=== PATIENT | female | born 1995 | race Caucasian/White ===

== ENCOUNTER 2023-12-10 11:55 | Outpatient (CLI) | payer OTHER, SELFPAY | END 2023-12-10 11:56 | disposition home or self-care (01) | LOC: NFLDUCREF 11:56 | PROVIDERS: PCP Family Medicine; Visit Provider Nurse Practitioner | DX: L08.9 Local infection of the skin and subcutaneous tissue, unspecified (principal); S01.339A Puncture wound without foreign body of unspecified ear, initial encounter | CPT/HCPCS: 87070; 87186 ==

== ENCOUNTER 2023-12-13 11:02 | Outpatient (CLI) | payer OTHER, SELFPAY | END 2023-12-13 11:03 | disposition home or self-care (01) | PROVIDERS: PCP Family Medicine; Visit Provider Family Medicine | DX: R53.83 Other fatigue (principal); Z13.220 Encounter for screening for lipoid disorders; R63.5 Abnormal weight gain | CPT/HCPCS: 80048; 80061; 84443; 85025 ==

== ENCOUNTER 2024-03-05 19:11 | Emergency (ER) | payer OTHER, SELFPAY ==
[2024-03-05 19:13] VITALS: BP 128/87; PULSE 112; RESP 18; TEMP 36.8; O2SAT 98; BMI 38.4
--- NOTE | 2024-03-05 19:40 | ED.HA ---
HPI - Headache General Time Seen by Provider: 19:40 Date Seen: 03/05/24 Chief Complaint: Headache/Migraine Stated Complaint: hypertension - high pulse - dizzy Time Seen by Provider: 03/05/24 19:40 Source: patient, RN notes reviewed and old records reviewed Mode of arrival: ambulatory Limitations: no limitations History of Present Illness HPI Narrative: 28-year-old female who comes in today with headache. Patient was seen earlier today at the [facility], at that time was concerned about hypertension, headache, is lightheadedness. Labs were done and patient was diagnosis urinary tract infection. Patient comes to the emergency department tonight feel thing poorly still. She complains of lightheadedness and generalized headache, as well as palpitations. Denies chest pain, shortness of breath, nausea, vomiting, diarrhea. Says she started feeling poorly this morning. No new medications. Related Data Home Medications ?Medication ?Instructions ?Recorded ?Confirmed albuterol sulfate 90 mcg/actuation 2 puff inhalation Q4-6H PRN 02/22/24 03/05/24 aerosol inhaler (Ventolin HFA) nitrofurantoin 1 cap PO BID 03/05/24 03/05/24 monohydrate/macrocrystals 100 mg capsule Previous Rx's ?Medication ?Instructions ?Recorded fluoxetine 40 mg capsule 80 mg (2 x 40 mg) PO DAILY #180 12/13/23 caps lisdexamfetamine 40 mg capsule 40 mg PO QAM #30 caps 02/22/24 (Vyvanse) lisdexamfetamine 40 mg capsule 40 mg PO QAM #30 caps 02/22/24 (Vyvanse) venlafaxine 75 mg capsule,extended 75 mg PO QDAY #30 caps 02/22/24 release 24 hr (Effexor XR) Allergies Allergy/AdvReac Type Severity Reaction Status Date / Time nifedipine [From Procardia] Allergy Intermediate Migraine Verified 03/05/24 19:20 bupropion [From Wellbutrin] Allergy Mild itching Verified 03/05/24 19:20 [facility] Medical History (Updated 03/05/24 @ 20:49 by Osman Crandall MD) Major depression, recurrent ?F33.9 - Major depressive disorder, recurrent, unspecified (ICD-10) ADHD, predominantly inattentive type ?F90.0 - Attention-deficit hyperactivity disorder, predominantly inattentive type (ICD-10) JOSE R (generalized anxiety disorder) ?F41.1 - Generalized anxiety disorder (ICD-10) Mild intermittent asthma ?J45.20 - Mild intermittent asthma, uncomplicated (ICD-10) Surgical History S/P tonsillectomy and adenoidectomy ?Z90.89 - Acquired absence of other organs (ICD-10) History of cholecystectomy ?Z90.49 - Acquired absence of other specified parts of digestive tract (ICD-10) History of sinus surgery ?Z98.890 - Other specified postprocedural states (ICD-10) History of hysterectomy ?Z90.710 - Acquired absence of both cervix and uterus (ICD-10) Family History Grandfather Colon cancer Prostate cancer Grandmother Breast cancer Brother ADHD Diabetes Mother ADHD Father Diabetes Lung cancer Other High blood pressure Social History Narrative: , 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, designated coordinator, nonsmoker, social ETOH What is your current living situation?: I presently have a place to live Problems where you live: no known problems In the past 12 months, utilities in danger of being shut off: no In past 12 months, lack of transportation kept you from medical appts, meetings, work, or getting things needed for daily living: no In the past 12 mos, have been you worried that your food would run out before you had money to buy more?: never true In the past 12 mos, the food you bought just didn't last and you didn't have money to buy more?: never true How often does anyone, including family, friends and others, physically hurt you: never How often does anyone, including family, friends and others, insult or talk down to you: never How often does anyone, including family, friends and others, threaten you with harm: never How often does anyone, including family, friends and others, scream or curse at you: never Little interest or pleasure in doing things: several days Feeling down, depressed, or hopeless: several days Exam Narrative: Exam Narrative: General: Well-developed and well-nourished, no acute distress Head: Atraumatic and normocephalic Eyes: Pupils are equal reactive, extraocular motions intact, conjunctiva clear ENT: External nose and ears are normal, posterior pharynx without erythema or exudate Neck: No midline cervical tenderness, full spontaneous range of motion the neck, trachea midline, no adenopathy Heart: Tachycardic but regular Lungs: Clear to auscultation bilaterally without wheezes or crackles Abdomen: Soft, nontender, nondistended with active bowel sounds Musculoskeletal: No tenderness, deformity, or edema Neurologic: Awake, alert, and oriented x3, no gross focal neurologic deficits, cranial nerves intact as tested Psych: Mood and affect are appropriate Skin: No rashes Const: Vital Signs, click to edit/add: Vital Signs - 24 hr 03/05/24 19:13 Temperature 98.3 F Pulse Rate [Pulse Oximeter] 112 H Respiratory Rate 18 Blood Pressure [Ri ght Upper Arm] 128/87 Pulse Oximetry 98 Oxygen Delivery Me thod Room Air Course Course ED Course: Patient seen and examined, reviewed visit from earlier today at outside emergency department when patient had labs done which demonstrated normal basic metabolic panel, mild leukocytosis of white blood cell count 99989, urinalysis nitrite positive with 11-25 white cells, many bacteria and moderate epithelial cells. Urine culture is pending patient was started on Macrobid. Patient presents today with generalized headache, lightheadedness, palpitations. Labs are ordered along with fluids. No focal neurologic deficits, lungs are clear. Reevaluation(s) Time of Reevaluation #1: 20:47 Reevaluation #1: EKG independently interpreted by me performed at 8:27 p.m. demonstrates sinus rhythm 86, no acute ST elevations or depressions, normal intervals, normal axis, QTC 430, NE 156. No prior for comparison. Labs ordered and independently interpreted by me with negative respiratory panel. Vital Signs Vital signs: Initial Vital Signs Temperature 98.3 F 03/05/24 19:13 Temperature Source Temporal Artery Scan 03/05/24 19:13 Pulse Rate 112 H 03/05/24 19:13 Pulse Rhythm Regular 03/05/24 19:13 Pulse Strength 3+ Normal 03/05/24 19:13 Respiratory Rate 18 03/05/24 19:13 Blood Pressure 128/87 03/05/24 19:13 Blood Pressure Mean 100 03/05/24 19:13 Blood Pressure Position Sitting 03/05/24 19:13 Pulse Oximetry 98 03/05/24 19:13 Oxygen Delivery Method Room Air 03/05/24 19:13 Vital Signs Temperature 98.3 F 03/05/24 19:13 Pulse Rate 112 H 03/05/24 19:13 Respiratory Rate 18 03/05/24 19:13 Blood Pressure 128/87 03/05/24 19:13 Pulse Oximetry 98 03/05/24 19:13 Oxygen Delivery Method Room Air 03/05/24 19:13 Temperature 98.3 F 03/05/24 19:13 Pulse Rate 80 03/05/24 22:06 Respiratory Rate 14 03/05/24 22:06 Blood Pressure 135/90 H 03/05/24 22:06 Pulse Oximetry 100 03/05/24 22:06 Oxygen Delivery Method Room Air 03/05/24 19:13 Medications Administered Medications: Discontinued Medications Generic Name Dose Route Start Last Admin Trade Name Freq PRN Reason Stop Dose Admin Sodium Chloride 1,000 mls @ 1,000 mls/hr 03/05/24 20:00 03/05/24 22:20 0.9 % Sodium Chloride 1000 Ml IV 03/05/24 20:59 Infused .Q1H BEE Infusion MDM - Headache Lab Data Labs: Lab Results 03/05/24 03/05/24 03/05/24 Range/Units 19:35 19:55 20:31 D-Dimer Quant (PE/DVT) < 0.27 (0.00-0.50) ug/ml SARS-CoV-2 (PCR) Negative SARS-CoV-2 (Negative) Influenza Type A (PCR) Negative PCR FLU A (Negative) Influenza Type B (PCR) Negative PCR FLU B (Negative) RSV (PCR) Negative PCR RSV (Negative) POC Troponin I 0.00 L (0.01-0.04) ng/ml Discharge Plan Discharge Clinical Impression: Headache, Palpitation Patient Disposition: Home, Self-Care Condition: Stable Instructions: Heart Palpitations (ED), Acute Headache (ED) Additional Instructions: Take Tylenol or ibuprofen as needed for headache Take antibiotics as prescribed earlier Make sure your getting plenty of fluids and rest. Avoid alcohol and caffeine Follow-up with your regular doctor in 1 week Activity Level: Activity as Tolerated Prescriptions: No Action fluoxetine 40 mg capsule 80 mg PO DAILY Qty: 180 1RF albuterol sulfate [Ventolin HFA] 90 mcg/actuation HFA aerosol inhaler 2 puff inhalation Q4-6H PRN lisdexamfetamine [Vyvanse] 40 mg capsule 40 mg PO QAM Qty: 30 0RF lisdexamfetamine [Vyvanse] 40 mg capsule 40 mg PO QAM Qty: 30 0RF venlafaxine [Effexor XR] 75 mg capsule,extended release 24hr 75 mg PO QDAY Qty: 30 1RF nitrofurantoin monohyd/m-cryst 100 mg capsule 1 cap PO BID Follow Up/Referrals: Larry Guevara MD [Primary Care Provider] - Stand Alone Forms: [facility] Info Instructions
[2024-03-05 20:15] LABS: PCR FLU A Negative PCR FLU A (Negative); PCR FLU B Negative PCR FLU B (Negative); PCR RSV Negative PCR RSV (Negative); SARS PCR* Negative SARS-CoV-2 (Negative)
--- NOTE | 2024-03-05 20:48 | CRLHL7_ITS ---
For Patients: As a result of the Cures Act, medical imaging exams and procedure reports are released immediately into your electronic medical record. You may view this report before your referring provider. If you have questions, please contact your health care provider. INDICATION: Palpitations. TECHNIQUE: Chest 2 views. COMPARISON: None. FINDINGS: Cardiovascular and mediastinum: Heart size and vasculature are normal in caliber and appearance. Lungs and pleural spaces: Lungs are clear. No sign of infiltrate or mass. No sign of pleural effusion. No pneumothorax. Bones and soft tissues: No significant findings. IMPRESSION: No acute cardiopulmonary abnormality. Dictated by Fransisco Arevalo MD @ 03/05/2024 10:17:06 PM (Electronically Signed)
[2024-03-05 21:14] VITALS: BP 135/90; PULSE 72
[2024-03-05 21:46] LABS: D Dimer Quantitative* < 0.27 ug/ml (0.00-0.50)
[2024-03-05 22:06] VITALS: BP 135/90; PULSE 80; RESP 14; O2SAT 100
[2024-03-05] MEDS: 0.9 % SODIUM CHLORIDE 1000 ml 1,000 ML IV (22:20)
== END 2024-03-05 22:30 | disposition home or self-care (01) ==
PROVIDERS: Emergency Provider Family Medicine; PCP Family Medicine
DX: R51.9 Headache, unspecified (principal); R00.2 Palpitations
CPT/HCPCS: 36415; 71046; 84484; 85379; 87631; 93005; 99284; J7030

== ENCOUNTER 2024-04-23 17:36 | Outpatient (CLI) | payer OTHER, SELFPAY | END 2024-04-23 17:37 | disposition home or self-care (01) | LOC: NFLDUCREF 17:37 | PROVIDERS: PCP Family Medicine; Visit Provider Nurse Practitioner Family | DX: L73.2 Hidradenitis suppurativa (principal) | CPT/HCPCS: 87070; 87186 ==

== ENCOUNTER 2024-07-24 18:39 | Emergency (ER) | payer OTHER, SELFPAY ==
[2024-07-24] VITALS (13 sets, daily range): BP systolic 126–142; BP diastolic 78–89; PULSE 118–157; RESP 14; TEMP 37.7–39.4; O2SAT 94–99; BMI 36.0
--- NOTE | 2024-07-24 19:04 | CRLHL7_ITS ---
For Patients: As a result of the Century Cures Act, medical imaging exams and procedure reports are released immediately into your electronic medical record. You may view this report before your referring provider. If you have questions, please contact your health care provider. INDICATION: Cough, fever. TECHNIQUE: Chest 1 view. COMPARISON: Chest radiograph 03/05/2024. FINDINGS: The patient is rotated and the left apex is partially obscured by patient`s head. Low lung volumes. No focal consolidation, pleural effusion, or pneumothorax. Normal heart size. New right hilar fullness. The bones are unremarkable. IMPRESSION: New right hilar fullness could be due to lymphadenopathy. No focal lung infiltrates. Dictated by Stella Greco MD @ 07/24/2024 8:21:23 PM (Electronically Signed)
--- NOTE | 2024-07-24 19:08 | ED.GENADULT ---
HPI - General Adult General Chief complaint: Fever Stated complaint: fever, high blood pressure Time Seen by Provider: 07/24/24 18:44 History of Present Illness HPI narrative: This 28-year-old female comes in reporting fever and generalized malaise with cough. Symptoms started about 4 days ago but worsened yesterday with fever. She arrives here with a temperature to 103? F. She did take Tylenol and ibuprofen about 3 hours prior to arrival. She does report some shortness of breath but arrives here with oximetry at 95% on room air. She does have tachycardia with heart rate around 140 beats per minute. Blood pressure is normal. She states that she did do testing for COVID, influenza, and RSV yesterday with negative results. Related Data Home Medications ?Medication ?Instructions ?Recorded ?Confirmed albuterol sulfate 90 mcg/actuation 2 puff inhalation Q4-6H PRN 02/22/24 06/25/24 aerosol inhaler (Ventolin HFA) Previous Rx's ?Medication ?Instructions ?Recorded dextroamphetamine-amphetamine 10 10 mg PO QDAY #30 tabs 06/25/24 mg tablet (Adderall) dextroamphetamine-amphetamine 10 10 mg PO QDAY #30 tabs 06/25/24 mg tablet (Adderall) dextroamphetamine-amphetamine 10 10 mg PO QDAY #30 tabs 06/25/24 mg tablet (Adderall) escitalopram oxalate 10 mg tablet 10 mg PO QDAY #90 tabs 06/25/24 lisdexamfetamine 50 mg capsule 50 mg PO QAM #30 caps 06/25/24 (Vyvanse) lisdexamfetamine 50 mg capsule 50 mg PO QAM #30 caps 06/25/24 (Vyvanse) lisdexamfetamine 50 mg capsule 50 mg PO QAM #30 caps 06/25/24 (Vyvanse) Allergies Allergy/AdvReac Type Severity Reaction Status Date / Time nifedipine (From Procardia) Allergy Intermediate Migraine Verified 07/24/24 18:46 bupropion (From Wellbutrin) Allergy Mild itching Verified 07/24/24 18:46 Review of Systems Status of ROS: Reports: 10 or more systems reviewed and unremarkable except as noted in History and below Narrative: Constitutional: No weight gain or loss. Eyes: No discharge. No vision changes. HENT: No congestion, no sore throat, no ear pain. Cardiovascular: No chest pain, no palpitations. Respiratory: Cough and some shortness of breath. Gastrointestinal: No abdominal pain, no vomiting, no diarrhea. Genitourinary: No dysuria, no hematuria. Musculoskeletal: Normal range of motion. Skin: No rashes, no pruritis. Neurological: No dizziness, weakness, sensory change, speech change. Endo/Heme/Allergies: No bruising or bleeding. No polydipsia. Pysch: no suicidality, no anxiety, no insomnia. All other systems reviewed and are negative. [facility] Medical History (Updated 07/24/24 @ 20:31 by Jarvis Mandujano MD) Major depression, recurrent ?F33.9 - Major depressive disorder, recurrent, unspecified (ICD-10) ADHD, predominantly inattentive type ?F90.0 - Attention-deficit hyperactivity disorder, predominantly inattentive type (ICD-10) JOSE R (generalized anxiety disorder) ?F41.1 - Generalized anxiety disorder (ICD-10) Mild intermittent asthma ?J45.20 - Mild intermittent asthma, uncomplicated (ICD-10) Surgical History S/P tonsillectomy and adenoidectomy ?Z90.89 - Acquired absence of other organs (ICD-10) History of cholecystectomy ?Z90.49 - Acquired absence of other specified parts of digestive tract (ICD-10) History of sinus surgery ?Z98.890 - Other specified postprocedural states (ICD-10) History of hysterectomy ?Z90.710 - Acquired absence of both cervix and uterus (ICD-10) Family History Grandfather Colon cancer Prostate cancer Grandmother Breast cancer Brother ADHD Diabetes Mother ADHD Father Diabetes Lung cancer Other High blood pressure Social History Narrative: , 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, designated coordinator, nonsmoker, social ETOH What is your current living situation?: I presently have a place to live Problems where you live: no known problems In the past 12 months, utilities in danger of being shut off: no In the past 12 mos, have been you worried that your food would run out before you had money to buy more?: never true In the past 12 mos, the food you bought just didn't last and you didn't have money to buy more?: never true How often does anyone, including family, friends and others, physically hurt you: never How often does anyone, including family, friends and others, insult or talk down to you: never How often does anyone, including family, friends and others, threaten you with harm: never How often does anyone, including family, friends and others, scream or curse at you: never Exam Narrative: Exam Narrative: Constitutional: Well-developed, well-nourished, no acute distress. HEENT: Normocephalic, atraumatic. Neck: Normal range of motion. Nontender. Supple. Heart: Regular. No murmurs. Normal rate. Intact distal pulses. Lungs: Clear to auscultation. No chest discomfort. No wheezes, rhonchi, or rales. Abdomen: Normal bowel sounds. Nontender. No rebound tenderness. Genitalia: Deferred. Back: No midline tenderness. Normal range of motion. Extremities: Normal range of motion. No injury. Skin: Intact. No rash. Warm. No erythema or pallor. Neurologic: No altered sensation. No weakness. Alert and oriented. Psychiatric: No suicidality. No anxiety or depression. No insomnia. Nursing notes and vitals signs are reviewed. Const: Vital Signs, click to edit/add: Vital Signs - 24 hr 07/24/24 18:46 07/24/24 18:54 07/24/24 19:01 Temperature 103 F H Pulse Rate 149 H 148 H Pulse Rate [Pulse Oximeter] 157 H Respiratory Rate 14 Blood Pressure 142/86 H Blood Pressure [Ri ght Upper Arm] 133/87 Pulse Oximetry 99 99 98 Oxygen Delivery Me thod Room Air 07/24/24 19:10 07/24/24 19:31 07/24/24 19:32 Temperature Pulse Rate 139 H 131 H 146 H Pulse Rate [Pulse Oximeter] Respiratory Rate Blood Pressure 126/78 133/87 Blood Pressure [Ri ght Upper Arm] Pulse Oximetry 97 94 99 Oxygen Delivery Me thod 07/24/24 19:45 07/24/24 20:00 07/24/24 20:01 Temperature Pulse Rate 131 H 124 H 130 H Pulse Rate [Pulse Oximeter] Respiratory Rate Blood Pressure 142/89 H Blood Pressure [Ri ght Upper Arm] Pulse Oximetry 94 95 95 Oxygen Delivery Me thod 07/24/24 20:02 07/24/24 20:15 07/24/24 20:17 Temperature 99.8 F H Pulse Rate 129 H 123 H Pulse Rate [Pulse Oximeter] Respiratory Rate Blood Pressure Blood Pressure [Ri ght Upper Arm] Pulse Oximetry 99 97 Oxygen Delivery Me thod Course Vital Signs Vital signs: Initial Vital Signs Temperature 103 F H 07/24/24 18:46 Temperature Source Temporal Artery Scan 07/24/24 18:46 Pulse Rate 157 H 07/24/24 18:46 Pulse Rhythm Regular 07/24/24 18:46 Respiratory Rate 14 07/24/24 18:46 Blood Pressure 133/87 07/24/24 18:46 Blood Pressure Mean 102 07/24/24 18:46 Blood Pressure Position Sitting 07/24/24 18:46 Pulse Oximetry 99 07/24/24 18:46 Oxygen Delivery Method Room Air 07/24/24 18:46 Vital Signs Temperature 103 F H 07/24/24 18:46 Pulse Rate 157 H 07/24/24 18:46 Respiratory Rate 14 07/24/24 18:46 Blood Pressure 133/87 07/24/24 18:46 Pulse Oximetry 99 07/24/24 18:46 Oxygen Delivery Method Room Air 07/24/24 18:46 Temperature 99.8 F H 07/24/24 20:17 Pulse Rate 123 H 07/24/24 20:15 Respiratory Rate 14 07/24/24 18:46 Blood Pressure 142/89 H 07/24/24 20:01 Pulse Oximetry 97 07/24/24 20:15 Oxygen Delivery Method Room Air 07/24/24 18:46 Medications Administered Medications: Discontinued Medications Generic Name Dose Route Start Last Admin Trade Name Freq PRN Reason Stop Dose Admin Sodium Chloride 1,000 mls @ 1,000 mls/hr 07/24/24 19:15 07/24/24 19:11 0.9 % Sodium Chloride 1000 Ml IV 07/24/24 20:14 1,000 mls/hr .Q1H BEE Administration Ketorolac Tromethamine 15 mg 07/24/24 19:03 07/24/24 19:10 Ketorolac 30 Mg/Ml Inj IVP 07/24/24 19:04 15 mg ONCE ONE Administration Medical Decision Making MDM Narrative Medical decision making narrative: This patient comes in with fever, tachycardia, and cough. She has normal oximetry at around 98% on room air. An IV was established and she received a L of normal saline and Toradol 15 mg intravenously. She is maintaining normal vital signs but continues to have some tachycardia. Chest x-ray is obtained and by my review and radiology report shows no obvious sign of infiltrate with some possible lymphadenopathy. Lab results also returned with normal findings. Her white count is normal and her lactate is in normal range. She is not showing signs of sepsis. This patient's symptoms are likely due to a respiratory infection which may be bacterial however the evidence seems to be more likely a viral infection. The patient did receive an IV dose of Solu-Medrol 125 mg. I did provide a prescription for doxycycline as her urinalysis did show positive for nitrates but not really an obvious infection otherwise. Doxycycline hopefully will help her if there is a bacterial component to her symptoms. I did discuss the option for hospitalization seeing that her tachycardia continues but the patient feels okay to return home. I did describe signs and symptoms that would indicate a need for return and re-evaluation. Lab Data Labs: Lab Results 07/24/24 07/24/24 Range/Units 19:15 Unknown WBC 8.78 (4.50-11.00) K/uL RBC 4.83 (4.00-5.20) m/uL Hgb 14.0 (12.0-16.0) gm/dL Hct 42.9 (33.0-51.0) % MCV 89 (80-100) fL MCH 29 (26-34) pg MCHC 33 (32-36) gm/dL RDW Coeff of Marcello 13.5 (11.5-15.5) % Plt Count 328 (140-440) K/uL Neut % (Auto) 75.8 H (42.0-72.0) % Lymph % (Auto) 12.2 L (20-44) % [place] % (Auto) 10.5 (0.0-11.0) % Eos % (Auto) 0.7 (0.0-7.0) % Baso % (Auto) 0.7 (0.0-3.0) % Neut # (Auto) 6.70 (1.7-7.0) K/uL Lymph # (Auto) 1.10 (0.90-2.90) K/uL [place] # (Auto) 0.90 (0.00-0.90) K/UL Eos # (Auto) 0.06 (0.00-0.50) K/uL Baso # (Auto) 0.06 (0.00-0.30) K/uL Abs Immat Gran (auto) 0.01 (0.00-0.30) K/uL Imm/Tot Granulo (auto) 0.1 % Sodium 137 (135-149) mmol/L Potassium 3.6 (3.6-5.1) mmol/L Chloride 104 (96-114) mmol/L Carbon Dioxide 24 (20-32) mmol/L Anion Gap 9 (7-15) mEq/L BUN 6 (5-24) mg/dL Creatinine 0.8 (0.5-1.5) mg/dL Estimated Creat Clear 100.90 Estimated GFR 102 ml/min Glucose 108 (60-115) mg/dL Lactate 1.7 (0.5-1.9) mmol/L Calcium 9.3 (8.4-10.6) mg/dL Urine Color Yellow (Yellow) Urine Appearance Clear (Clear) Urine pH 7.5 (5.0-8.5) Ur Specific [place] 1.015 (1.000-1.030) Urine Protein Negative (Negative) Urine Glucose (UA) Negative (Negative) Urine Ketones Negative (Negative) Urine Blood Trace-intact A (Negative) Urine Nitrite Positive A (Negative) Urine Bilirubin Negative (Negative) Urine Urobilinogen 1.0 (0.2-1.0) Ur Leukocyte Esterase Trace A (Negative) Urine RBC 2-5 A (0-2) Urine WBC 2-5 (0-5) Ur Squamous Epith Cells Few (None-Few) Urine Bacteria Moderate A (None) ECG Data Attestation: I personally reviewed and interpreted this ECG as follows: Interpretation: Sinus tachycardia. Rate is 138 beats per minute. There are no specific ST or T-wave abnormalities. Discharge Plan Discharge Clinical Impression: Lower respiratory infection Patient Disposition: Home, Self-Care Condition: Stable Additional Instructions: Use [id number] medicines as needed and directed. Take prescription also as directed. Follow up with MD return if symptoms persist or are worsening. Prescriptions: No Action lisdexamfetamine [Vyvanse] 50 mg capsule 50 mg PO QAM Qty: 30 0RF escitalopram oxalate 10 mg tablet 10 mg PO QDAY Qty: 90 1RF lisdexamfetamine [Vyvanse] 50 mg capsule 50 mg PO QAM Qty: 30 0RF lisdexamfetamine [Vyvanse] 50 mg capsule 50 mg PO QAM Qty: 30 0RF dextroamphetamine-amphetamine [Adderall] 10 mg tablet 10 mg PO QDAY Qty: 30 0RF dextroamphetamine-amphetamine [Adderall] 10 mg tablet 10 mg PO QDAY Qty: 30 0RF dextroamphetamine-amphetamine [Adderall] 10 mg tablet 10 mg PO QDAY Qty: 30 0RF albuterol sulfate [Ventolin HFA] 90 mcg/actuation HFA aerosol inhaler 2 puff inhalation Q4-6H PRN Follow Up/Referrals: Clay Tucker MD [Primary Care Provider] - Stand Alone Forms: [employer] Info Instructions
[2024-07-24] MEDS: KETOROLAC 30 MG/ML inj 15 MG IVP (19:10)
[2024-07-24] MEDS: 0.9 % SODIUM CHLORIDE 1000 ml 1,000 ML IV (19:11)
[2024-07-24 19:20] LABS: Lactate* 1.7 mmol/L (0.5-1.9)
[2024-07-24 19:26] LABS: Basophils Absolute Auto 0.06 K/uL (0.00-0.30); Basophils Percent Auto 0.7 % (0.0-3.0); Eosinophils Absolute Auto 0.06 K/uL (0.00-0.50); Eosinophils Percent Auto 0.7 % (0.0-7.0); Hematocrit 42.9 % (33.0-51.0); Immature Granulocytes Abs Auto 0.01 K/uL (0.00-0.30); Immature Granulocytes Pct Auto 0.1 %; Lymphocytes Percent Auto 12.2 % (20-44); Mean Corpuscular HGB Conc 33 gm/dL (32-36); Mean Corpuscular Hemoglobin 29 pg (26-34); Mean Corpuscular Volume 89 fL (80-100); Monocytes Percent Auto 10.5 % (0.0-11.0); Neutrophils Percent Auto 75.8 % (42.0-72.0); Platelet Count* 328 K/uL (140-440); RDW Coefficient of Variation % 13.5 % (11.5-15.5); Red Blood Count 4.83 m/uL (4.00-5.20); Slide Review Reflex No; White Blood Count* 8.78 K/uL (4.50-11.00)
[2024-07-24 19:36] LABS: Chloride* 104 mmol/L (96-114)
[2024-07-24 19:37] LABS: Potassium* 3.6 mmol/L (3.6-5.1); Sodium* 137 mmol/L (135-149)
[2024-07-24 19:39] LABS: Creatinine* 0.8 mg/dL (0.5-1.5); Estimated Glomerular Filt Rate 102 ml/min
[2024-07-24 19:40] LABS: Anion Gap 9 mEq/L (7-15); Blood Urea Nitrogen* 6 mg/dL (5-24); Calcium* 9.3 mg/dL (8.4-10.6); Carbon Dioxide* 24 mmol/L (20-32); Glucose* 108 mg/dL (60-115)
[2024-07-24 20:16] LABS: Appearance Urine Clear (Clear); Bilirubin Urine Negative (Negative); Blood Urine Trace-intact (Negative); Color Urine Yellow (Yellow); Glucose Urine Negative (Negative); Ketones Urine Negative (Negative); Leukocyte Esterase Urine Trace (Negative); Nitrite Urine Positive (Negative); Protein Urine Negative (Negative); Specific Gravity Urine 1.015 (1.000-1.030); pH Urine 7.5 (5.0-8.5)
[2024-07-24 20:26] LABS: Bacteria Urine Moderate; Squamous Epithelial Cell Urine Few (None-Few)
[2024-07-24] MEDS: METHYLPREDNISOLONE SOD SUCC 62.5 MG/ML (125) 125 MG IVP (20:36)
== END 2024-07-24 20:50 | disposition home or self-care (01) ==
PROVIDERS: Emergency Provider Emergency Medicine Emergency Medical Services; PCP Family Medicine
DX: J22 Unspecified acute lower respiratory infection (principal)
CPT/HCPCS: 36415; 71045; 80048; 81001; 83605; 85025; 87040; 87086; 87186; 93005; 96361; 96374; 96375; 99284; 99285; J1885; J2919; J7030

== ENCOUNTER 2024-08-08 17:55 | Outpatient (CLI) | payer BC, SELFPAY | END 2024-08-08 17:56 | disposition home or self-care (01) | LOC: NFLDUCREF 17:57 | PROVIDERS: PCP Family Medicine; Visit Provider Family Medicine | DX: R05.9 Cough, unspecified (principal) | CPT/HCPCS: 86615 ==

== ENCOUNTER 2024-11-18 15:47 | Outpatient (CLI) | payer BC, SELFPAY | END 2024-11-18 15:48 | disposition home or self-care (01) | LOC: NFLDREF 11-19 10:49 | PROVIDERS: PCP Family Medicine; Referring Provider Family Medicine; Visit Provider Family Medicine | DX: Z13.228 Encounter for screening for other metabolic disorders (principal) | CPT/HCPCS: 80048 ==

== ENCOUNTER 2025-05-23 14:19 | Emergency (ER) | payer BC, SELFPAY ==
[2025-05-23 14:21] VITALS: BP 145/85; PULSE 86; RESP 16; TEMP 36.6; O2SAT 100; BMI 37.6
--- OUTSIDE RECORDS SUMMARY | 2025-05-23 14:21 | XMS_ITS | Clinical Summary ---
Author Organization [employer] [facility] Address [address] [place] [id number] Care Team Providers Care Napping Machine Operator Name Role Phone Zayra Cobb NP Unavailable [phone] Clay Tucker MD Primary Care Provider + Allergies Active Allergy Reactions Criticality Noted Date Comments Nifedipine Headache 09/20/2018 Bupropion Itching 09/21/2021 Medications SUMAtriptan (IMITREX) 50 mg tablet Take 50 mg by mouth 2 times daily if needed. 02/16/20 19 Active topiramate (TOPAMAX) 25 mg tablet Take 1 tablet by mouth at bedtime. 01/28/20 20 Active cholecalciferol, Vitamin D3, 5,000 unit tab tablet Take 125 mcg by mouth once daily. Active colestipoL (COLESTID) 1 gram tablet Take 1 g by mouth one time if needed. 10/28/19 20 Active docusate 250 mg capsule Take 250 mg by mouth once daily if needed. Active FLUoxetine (PROZAC) 40 mg capsule Take 1 Capsule by mouth once daily. 07/28/20 21 Active fluticasone propionate (FLOVENT) 110 mcg/Actuation inhaler Inhale 2 Puffs by mouth 2 times daily. 03/12/20 21 Active loratadine (CLARITIN) 10 mg tablet Take 10 mg by mouth once daily. 03/12/20 21 Active rizatriptan (MAXALT EMBROIDERY SPECIALIST) 10 mg disintegrating tablet Take 10 mg by mouth one time if needed. 12/17/19 21 Active BUPROPION HCL ORAL Take 10 mg by mouth. Active HYDROcodone-acetam inophen (NORCO) 5-325 mg per tabletIndications: Post-op pain Take 1 tablet by mouth every 4 hours if needed for Pain. Max acetaminophen dose: 4000 mg in 24 hrs. 12 Tablet 2 5:27 PM LABORER YARD 09/30/19 22 Active ondansetron (ZOFRAN ODT) 8 mg disintegrating tabletIndications: Nausea Place 1 tablet (8 mg) on the tongue 2 times daily. 12 Tablet 2 5:27 PM LABORER YARD 09/30/19 22 Active albuterol HFA (PRO-AIR; VENTOLIN; PROVENTIL) 90 mcg/actuation inhalerIndications :Mild intermittent asthma with exacerbation (HC) Inhale 2 Puffs by mouth 4 times daily if needed for Shortness Of Breath or Wheezing. 1 Each 02/01/20 24 Active Active Problems Problem Noted Date Diagnosed Date Abnormal uterine bleeding 12/25/2018 Placenta accreta, antepartum 12/25/2018 Dysmenorrhea 12/25/2018 Vacuum extractor delivery, delivered 10/28/2018 Retained placenta 10/28/2018 Gestational hypertension 10/05/2018 Preeclampsia 10/05/2018 Gestational hypertension 09/27/2018 Urinary tract bacterial infections 09/22/2018 Arthritis of carpometacarpal (CMC) joint of righ t thumb 05/11/2017 Overview (09/12/2018): right thumb arthroplasty, ligament reconstruction and tendon interposition Immunizations Immunization Administration Dates Next Due Rabavert 03/16/2024,03/13/2024 03/20/2024 Tdap 03/13/2024,08/30/2018,12/18/2017 ,05/23/2007 Family History Medical History Relation Name Comments No Known Problems Daughter Relation Name Status Comments Daughter Alive Social History Tobacco Use Types Packs/Day Years Used Date Smoking Tobacco: Never Smokeless Tobacco: Never Tobacco Cessation:Counseling Given: No Alcohol Use Standard Drinks/Week Comments No 0 (1 standard drink = 0.6 oz pur e alcohol) Social Connections Answer Date Recorded Do you often feel lonely or isolated from those around you? 0 03/13/2024 Financial Resource Strain Answer Date R ecorded Difficulty of Paying Living Expenses 3 09/28/2024 Difficulty of Paying Living Expenses Not on file 09/28/2024 Food Insecurity Answer Date Recorded Do you worry your food will run out before you are able to buy more? 1 03/13/2024 Transportation Needs Answer Date Record ed Does lack of transportation keep you from medica l appointments? 1 03/13/2024 Does lack of transportation keep you from work, meetings or getting things that you need? 1 03/13/2024 Housing Stability Answer Date Recorded What is your housing situation today? 1 03/13/2024 Interpersonal Safety Answer Date Record ed Are you being hit, kicked, p ushed or yelled at (see row info)? No 02/01/2024 Interpersonal Safety Abuse 12 - 18 Not on file 02/01/2024 Interpersonal Safety Ambulatory Vulnerability No t on file 02/01/2024 Utilities Answer Date Recorded Do you have trouble paying f or utilities (for example, heat, electricity, water, phone)? 1 03/13/2024 Comments No Sex and Gender Information Value Date Recorded Sex Assigned at Not on file Legal Sex Female 7:14 AM LABORER YARD Gender Identity Not on file Sexual Orientation Not on file Obstetrics History Para Term AB IAB SAB Ectopic Multiple Livin g Live Births 1 1 0 1 0 0 0 0 0 1 1 Date Outcome GA Total Labor Labor/2nd/3rd Weight Sex Type Anes PTL Elaine A1 A5 Name Clin 2018 36w 5d 3.06 kg (6 lb 12 oz) F Vag-V acuum Epidur al N Livin g Jennifer Evans Complications:Retained place nta (HC) Delivery Location:[facility] ospital Comments:PPH Last Filed Vital Signs Vital Sign Reading Time Taken Comments Blood Pressure 130/81 03/13/2024 7:36 PM CDT Pulse 98 03/13/2024 7:36 PM CDT Temperature 36.1 C (96.9 F) 03/13/2024 7:36 PM CDT Respiratory Rate 18 03/13/2024 7:36 PM CDT Oxygen Saturation 96% 03/13/2024 7:36 PM CDT Inhaled Oxygen Concentration - - Weight 110.6 kg (243 lb 14.4 oz) 03/13/2024 7:36 PM CDT Height 170.2 cm (5' 7) 03/05/2024 9:49 AM CDT Body Mass Index 38.2 03/05/2024 9:49 AM CDT Plan of Treatment Health Maintenance Due Date Last Done Comments Depression screening for age 12+ 2006 HIV for age 15-65 2009 Hepatitis C screening for age 18-79 2012 Hepatitis B series for 19+ (1 of 3 - 19+ 3-dose series) 2013 Pap test for age 21-65 2015 BMI (ht and wt on same day) for age 18+ 05/03/2018 05/03/2017, 04/27/2017 HPV series for age 9-45 (1 - 3-dose SCDM series) 2021 COVID-19 vaccine series (2024- season) 2025 08/05/2021, 10/30/2020, 10/02/2020 Influenza Vaccine (#1) 2025 Tetanus booster 03/13/2034 03/13/2024, 10/2018, 12/18/2017, Additional history exists RSV vaccine for adults or (1 - 1-dose 75+ series) 2069 Pneumococcal series for age 6-49 Aged Out No longer eligible based on patient's age to complete this topic Insurance CARLI CRESPO [id number] [employer] [place] OF [place] Advance Directives * Full Code (Latest Code Status on File) Date Activated Date Inactivated Comments 09/30/2021 7:27 AM 09/30/2021 5:32 PM Question Answer Comments Code Status Discussion: Reviewed Preferences * Full Code Date Activated Date Inactivated Comments 03/02/2020 7:58 AM 03/02/2020 1:00 PM * Full Code Date Activated Date Inactivated Comments 02/05/2020 9:57 AM 02/05/2020 4:32 PM * Full Code Date Activated Date Inactivated Comments 02/05/2020 9:57 AM 02/05/2020 9:57 AM * Full Code Date Activated Date Inactivated Comments 12/25/2018 8:04 AM 12/26/2018 12:21 PM Question Answer Comments Code Status Discussion: Discussed Care Teams Napping Machine Operator Relationship Specialty Start Date End Date Clay Tucker MD [address] [place] [address] PCP - General Family Practice 01/03/24 Zayra Cobb NP Nurse Practitioner 12/19/17
--- OUTSIDE RECORDS SUMMARY | 2025-05-23 14:21 | XMS_ITS | Clinical Summary ---
Author Organization [facility] [place] [address] Care Team Providers Care Fraud Manager Name Role Phone Garth Marin M.D. Primary Care Provider Source Comments Patient records contain information from all sites at [facility]. For routine questions regarding patient records, call [phone] during business hours, M-F 8:00 AM - 5:00 PM Central Time. Record requests for emergency care only can be directed to [phone] at any time.[facility] Allergies Active Allergy Reactions Criticality Noted Date Comments Bupropion Itching Low 09/21/2021 Nifedipine Headache Low 09/20/2018 Bupropion Hcl Itching Low 06/24/2021 Medications acetaminophen (TYLENOL) 500 mg tablet Take 1,000 mg by mouth every 6 (six) hours as needed for pain. Active albuterol (Ventolin HFA) inhalerIndications :Asthma Extrinsic (HCC) Inhale 2 puffs 4 (four) times a day as needed for wheezing. 54 g 3 0 Active cholecalciferol (VITAMIN D3) 125 mcg (5,000 Unit) tablet Take 125 mcg by mouth daily. 2 gummies equivalent to 5,000 IU Active rizatriptan INTELLIGENCE INTERN (Maxalt-INTELLIGENCE INTERN) 10 mg disintegrating tablet Take 1 tablet (10 mg total) by mouth as needed for migraine. May repeat dose once in 2 hours if migraine unresolved. Do not exceed 30 mg in 24 hours. 18 tablet 3 1 Active loratadine (Claritin) 10 mg tablet Take 1 tablet (10 mg total) by mouth daily. 90 tablet 3 1 Active fluticasone propionate (FLOVENT HFA) 110 mcg/actuation inhalerIndications :Asthma Chronic Mild (HCC) Inhale 2 puffs 2 (two) times a day as needed. Rinse mouth with water after use to reduce aftertaste and incidence of candidiasis. Do not swallow. 1 Active sod chlor,sod bicarb/neti pot (SINUS WASH NETI POT MERI) 8 oz by sinus irrigation route 2 (two) times a day. Active topiramate (TOPAMAX) 50 mg tablet Take 1 tablet (50 mg total) by mouth at bedtime for 180 doses. 90 tablet 1 2 Active FLUoxetine (PROzac) 40 mg capsule Take 1 capsule (40 mg total) by mouth daily. 90 capsule 3 3 Active methylPREDNISolone (MEDROL DOSEPAK) 4 mg tablet follow package directions 21 tablet 3 Active Active Problems Problem Noted Date Diagnosed Date Body Mass Index 34.0 To 34.9 Adult 09/23/2021 Depression Major Recurrent Moderate 04/28/2021 Hysterectomy Status Post 11/10/2020 Anxiety Generalized Disorder 08/26/2020 Cholecystectomy Laparoscopic Status Post 019 Migraine Headache 02/17/2019 Assessment & Plan (06/07/2022 1:55 PM CDT): Can go up to couple months without a migraine, but then comes in a grouping. Still has a lot of baseline regular headaches but can function. Has tried oral sumatriptan and rizatriptan without much relief. Rhinitis Allergic 04/18/2017 Insomnia 04/18/2017 Asthma Chronic Mild 07/08/2014 Assessment & Plan (06/07/2022 4:36 PM CDT): Stable. Uses Flovent inhaler as needed along with albuterol inhaler. Resolved Problems Problem Noted Date Diagnosed Date Resolved Date Dysmenorrhea 12/25/2018 01/10/2020 Preeclampsia Personal History Not 10/09/2018 06/07/2022 Preeclampsia 10/06/201812/17 Overview (10/07/2018): Diagnosed 2/8. P/C of 0.7 Recommend twice weekly surveillance, with growth US q3 weeks Planned delivery at 37 weeks unless she develops severe features Had eye exam with ophtho for blurry vision- no edema or hemorrhage, dx with dry eye Encounter For Supervision Of Normal First Unspecified Trimester 04/06/2018 12/18/19 19 Overview (10/09/2018): rubella immune, A positive blood type, passed glucose test, GBS negative. Desires permanent sterilization, informed consent has been signed. Diagnosed with preeclampsia at 33 weeks, status post a full course of betamethasone on 2 occasions. Once here, and once at [facility] after transfer. She was discharged at 34 weeks from [facility]. Management Contraception Prescription 05/19/2016 02/07/2018 Deficiency Vitamin D 10/17/2012 020 Immunizations Immunization Administration Dates Next Due 4vHPV (discontinued) 05/25/2012,12/07/2011,04/08 DTaP (Infanrix, [employer]edia) 05/23/2007,03/22/2000 HepA Pediatric/Adolescent 04/08/2011 HepA, Pediatric Unspecified 04/08/2011 HepB, Unspecified 06/15/1995,04/12/1995,12/02/18 95 IPV 06/15/1995,04/12/1995,1994 Influenza, Seasonal, Injectable 05/20/2021 Influenza, Unspecified 07/28/2020 MCV4 (Menactra)(Discontinued) 04/08/2011 MMR 05/23/2007,01/12/1996 PCV20 12/06/2022 PPSV23 04/18/2017 Polio, Unspecified 03/22/2000 SARS-COV-2 (COVID-19) - MODERNA(Discontinued) 08/05/2021 Tdap 08/30/2018,12/18/2017,05/23/2007 RISSA 05/23/2007,06/12/1998 Family History Medical History Relation Name Comments Breast cancer Aunt 1 Maternal Ovarian cancer Aunt 2 Colon polyps Father's Brother Arnol Uterine cancer Grandmother Paternal Great Breast cancer Maternal Grandmother Unknown Alcohol abuse Mother Sheri Hyperlipidemia Mother Sheri Hypertension Mother Sheri Colon cancer Paternal Grandfather Unknown Pancreatic cancer Paternal Grandfather Unknown Prostate cancer Paternal Grandfather Unknown Colon polyps Paternal Grandmother Unknown Ovarian cancer Paternal Grandmother Unknown Pancreatic cancer Paternal Grandmother Unknown Cervical dysplasia Sister half PCOS - Polycystic ovarian syndrome Sister half Relation Name Status Comments Aunt 1 Maternal Alive Aunt 2 Other Father's Brother Arnol Grandmother Paternal Great Alive Maternal Grandmother Unknown Mother Sheri Paternal Grandfather Unknown Paternal Grandmother Unknown Sister half Social History Tobacco Use Types Packs/Day Years Used Date Smoking Tobacco: Never Smokeless Tobacco: Never Tobacco Cessation:Counseling Given: Not Answered Alcohol Use Standard Drinks/Week Comments Yes 0 (1 standard drink = 0.6 oz pur e alcohol) PRIOR:once per month Humiliation, Afraid, Rape, and Kick questionnair e Answer Date Recorded Within the last year, have y ou been afraid of your partner or ex-partner? No 06/01/2022 Within the last year, have y ou been humiliated or emotionally abused in other ways by your partner or ex-partner? No Within the last year, have y ou been kicked, hit, slapped, or otherwise physically hurt by your partner or ex-partner? No 06/01/2022 Within the last year, have y ou been raped or forced to have any kind of sexual activity by your partner or ex-partner? No 06/01/2022 Hunger Vital Sign Answer Date Recorded Within the past 12 months, y ou worried that your food would run out before you got the money to buy more. Patient declined Within the past 12 months, t he food you bought just didn't last and you didn't have money to get more. Never true 12/2021 PRAPARE - Transportation Answer Date Re corded In the past 12 months, has l ack of transportation kept you from medical appointments or from getting medications? No 12/2021 In the past 12 months, has l ack of transportation kept you from meetings, work, or from getting things needed for daily living? No 06/01/2022 Housing Stability Vital Sign Answer Eliu e Recorded In the last 12 months, was t here a time when you were not able to pay the mortgage or rent on time? No 06/01/2022 Number of Places Lived in the Last Year Not on f ile 06/01/2022 In the last 12 months, was t here a time when you did not have a steady place to sleep or slept in a intermediate (including now)? No 06/01/2022 Depression Answer Date Recor ded PHQ-9 Total Score (max 27) 10 12/05 Education Answer Date Recorded What is the highest level of school you have completed or the highest degree you have received? Bachelor's degree (e.g., BA, AB, BS) 02/01/2019 Comments No Sex and Gender Information Value Date Recorded Sex Assigned at Female 11/13/2017 7:26 PM CDT Legal Sex Female 4:29 AM MALE MODEL Gender Identity Female 11/13/2017 7:26 PM CDT Sexual Orientation Straight 11/13/2017 7: 26 PM CDT Last Filed Vital Signs Vital Sign Reading Time Taken Comments Blood Pressure 121/84 12/06/2022 9:22 AM CDT Pulse 76 12/06/2022 9:22 AM CDT Temperature 36.1 C (97 F) 12/06/2022 9:22 AM CDT Respiratory Rate 16 12/06/2022 9:22 AM CDT Oxygen Saturation 100% 09/20/2021 1:21 PM MALE MODEL Inhaled Oxygen Concentration - - Weight 109 kg (239 lb 8.5 oz) 12/06/2022 9:22 AM CDT Height 171.4 cm (5' 7.48) 09/20/2021 1:21 PM CS T Body Mass Index 36.98 09/20/2021 1:21 PM MALE MODEL Plan of Treatment Health Maintenance Due Date Last Done Comments CT Colonography 1994 Cologuard 1994 Hepatitis C Screening 1994 Asthma Management/Exacerbati on Questionnaire (AMQ/AEQ) 10/04/2017 Depression Monitoring (PHQ-9) 04/06/2023 12/05/2022 Asthma Action Plan 06/07/2023 06/07/2022, 0 04/18/2017, 05/19/2016 Asthma Control Test Questionnaire 12/01/2023 11/30/2022, 04/18/2017, 05/19/2016 Depression Monitoring (PHQ-9 for quality tracking) 08/28/2024 Colonoscopy 02/04/2025 02/05/2020, 12/27/2017 Colorectal Cancer Surveillance 02/04/2025 COVID-19 Vaccine (4 2024-2 6 season) 2025 08/05/2021, 10/30/2020, 10/02/2020 Influenza Vaccine (#1) 2025 05/20/2021, 2019 DTaP,Tdap,and Td Vaccines (6 - Td or Tdap) 03/13/2034 03/13/2024, 08/30/2018, 12/18/2017, Additional history exists Hepatitis B Vaccines Completed 06/15/1995, 04/12/1995, 1994 IPV Vaccines Completed 03/22/2000, 05/28, 04/12/1995, Additional history exists Varicella Vaccines Completed 05/23/2007, 06/12/1998 HPV Vaccines Completed 05/25/2012, 11/26, 04/08/2011 HIV Screening Completed 03/26/2018 Hepatitis B Screening Discontinued 03/26/2018 Chlamydia and Gonorrhea Screening Discontinued 06/07/2022, 2018, 04/06/2018, Additional history exists Pneumococcal vaccine (0-49 years) Completed 023, 04/18/2017 Medical Devices Implanted Type Area Rv Repair Technician Device Identifier Shelf Expiration Date Model / Serial / Lot Imaging Marker Imaging Marker Right: Breast Explanted Type Area Rv Repair Technician Device Identifier Shelf Expiration Date Model / Serial / Lot Intrauterine Device- 8 Implanted:Qty: 1 on 01/11/2018 by Katerin Brown, ANT, C.N.P. Intrauterine Device Midline: Uterus Suzanne 07/14/2020 / / [id number] Description:Mirena IUD Procedures Procedure Name Priority Date/Time Associated Diagnosis Comments CHLAMYDIA/GONORRHOE AE AMPLIFIED RNA Routine 06/07/2022 2:12 PM CDT Unspecified Dyspareunia HIV-1/-2 AG AND AB SCREEN Routine 03/26/2018 9:55 AM CDT Encounter For Supervision Of Normal First Unspecified Trimester HEPATITIS B SURFACE ANTIGEN Routine 03/26/2018 9:55 AM CDT Encounter For Supervision Of Normal First Unspecified Trimester from Last 3 Months or Most Recently Relevant to Health Maintenance Results * Chlamydia / Gonorrhoeae Amplified RNA (06/07/2022 2:12 PM CDT) Source Swab, Vagina 06/08/2022 12:08 AM CDT MKTO Chlamydia trachomatis amplified RNA Negative Negative 06/08/2022 12:08 AM CDT MKTO Source Swab, Vagina 06/08/2022 12:08 AM CDT MKTO Neisseria gonorrhoeae amplified RNA Negative Negative 06/08/2022 12:08 AM CDT MKTO Swab (Vagina) 06/07/2022 2:1 2 PM CDT 06/07/2022 8:29 PM CDT Katerin Abdi APRN, C.N.P ., D.N.P. LAB MICROBIOLOGY - GENERAL ORDERABLES Final Result [facility] [address] [place] [address] [place] [address] * HIV-1/-2 Ag and Ab Screen (03/26/2018 9:55 AM CDT) Pathologist [facility] HIV-1/-2 Ag and Ab Screen, S Non-Reacti ve Non-Reacti ve 03/27/2018 10:57 AM CDT [facility] HIV-1 Ab, S Non-Reacti ve Non-Reacti ve 03/27/2018 10:57 AM CDT [facility] HIV-1 Ag, S Non-Reacti ve Non-Reacti ve 03/27/2018 10:57 AM CDT [facility] HIV-2 Ab, S Non-Reacti ve Non-Reacti ve 03/27/2018 10:57 AM CDT [facility] Blood (Blood, Venous) 03/26/2018 9:55 AM CDT 03/26/2018 6:24 PM CDT Jason Schilling M.D. LAB MICROBIOLOGY - BLOOD ORDLuis Alberto ALEXBREE Final Result Performing Organization Address City/[facility]/ZIP Co de Phone Number [facility] [address] [place] [address], [facility] * Hepatitis B Surface Antigen (03/26/2018 9:55 AM CDT) HBs Antigen, S Nonreactive Nonreactive 03/26/20 18 2:50 PM CDT [facility] Comment: Biotin has been identified by the merchandising consultant as a potential interfering substance. Higher concentrations of biotin may be found in multivitamins, hair/nail supplements, and workout supplements. If the result does not match clinical observations, repeat testing after patient refrains from the use of supplements for at least 12 hours. Blood (Blood, Venous) 03/26/2018 9:55 AM CDT 03/26/2018 1:55 PM CDT Jason Schilling M.D. LAB MICROBIOLOGY - BLOOD MATIAS CASIANO Final Result Performing Organization Address City/[facility] [[email or web address]] Co de Phone Number [facility] [address] [place] [address], [facility] from Last 3 Months or Most Recently Relevant to Health Maintenance Insurance [facility] [place] [address] [facility] [place] [address] Care Teams Fraud Manager Relationship Specialty Start Date End Date Garth Marin M.D. [address] [place] [address] CARLI Hoskins [phone] PCP - General Family Medicine 11/25/22
--- NOTE | 2025-05-23 14:53 | ED.GENADULT ---
HPI - General Adult General Chief complaint: Dizziness/Vertigo Stated complaint: dizzy, lightheadedness,headache Time Seen by Provider: 05/23/25 14:21 History of Present Illness HPI narrative: patient is a 29-year-old woman who has history of preeclampsia who comes in today with general anxiety shortness of breath no cough but chest heaviness. This has been present for the last several weeks but progressing. she has no increase in her symptoms with activity. No nausea no vomiting no fevers no chills. She is quite tearful and states that she is very anxious and wants to just make sure that her heart is okay. Blood pressure is mildly elevated today although patient is extremely anxious. Related Data Home Medications ?Medication ?Instructions ?Recorded ?Confirmed albuterol sulfate 90 mcg/actuation 2 puff inhalation Q4-6H PRN 02/22/24 02/05/25 aerosol inhaler (Ventolin HFA) Previous Rx's ?Medication ?Instructions ?Recorded ipratropium 0.5 mg-albuterol 3 mg 3 ml inhalation Q4-6H PRN wheezing 08/08/24 (2.5 mg base)/3 mL nebulization #90 mL soln buspirone 10 mg tablet 10 mg PO BID #60 tabs 11/07/24 escitalopram oxalate 10 mg tablet 10 mg PO QDAY #90 tabs 11/07/24 dextroamphetamine-amphetamine ER 25 mg PO QAM #30 caps 03/05/25 25 mg 24hr capsule,extend release (Adderall XR) dextroamphetamine-amphetamine ER 25 mg PO QAM #30 caps 03/05/25 25 mg 24hr capsule,extend release (Adderall XR) dextroamphetamine-amphetamine ER 25 mg PO QAM #30 caps 03/05/25 25 mg 24hr capsule,extend release (Adderall XR) dextroamphetamine-amphetamine 10 10 mg PO QDAY #30 tabs 03/06/25 mg tablet (Adderall) dextroamphetamine-amphetamine 10 10 mg PO QDAY #30 tabs 03/06/25 mg tablet (Adderall) dextroamphetamine-amphetamine 10 10 mg PO QDAY #30 tabs 07/10/25 mg tablet (Adderall) Allergies Allergy/AdvReac Type Severity Reaction Status Date / Time nifedipine (From Procardia) Allergy Intermediate Migraine Verified 02/05/25 16:17 bupropion (From Wellbutrin) Allergy Mild itching Verified 02/05/25 16:17 Review of Systems Status of ROS: Reports: 10 or more systems reviewed and unremarkable except as noted in History and below [facility] Medical History Exogenous obesity ?E66.09 - Other obesity due to excess calories (ICD-10) Paroxysmal cough ?R05.8 - Other specified cough (ICD-10) Acute asthma exacerbation ?J45.901 - Unspecified asthma with (acute) exacerbation (ICD-10) Major depression, recurrent ?F33.9 - Major depressive disorder, recurrent, unspecified (ICD-10) ADHD, predominantly inattentive type ?F90.0 - Attention-deficit hyperactivity disorder, predominantly inattentive type (ICD-10) JOSE R (generalized anxiety disorder) ?F41.1 - Generalized anxiety disorder (ICD-10) Mild intermittent asthma ?J45.20 - Mild intermittent asthma, uncomplicated (ICD-10) Surgical History S/P tonsillectomy and adenoidectomy ?Z90.89 - Acquired absence of other organs (ICD-10) History of cholecystectomy ?Z90.49 - Acquired absence of other specified parts of digestive tract (ICD-10) History of sinus surgery ?Z98.890 - Other specified postprocedural states (ICD-10) History of hysterectomy ?Z90.710 - Acquired absence of both cervix and uterus (ICD-10) Family History Grandfather Colon cancer Prostate cancer Grandmother Breast cancer Brother ADHD Diabetes Mother ADHD Father Diabetes Lung cancer Other High blood pressure Social History Narrative: , 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, designated coordinator, nonsmoker, social ETOH What is your current living situation?: I presently have a place to live Problems where you live: no known problems In the past 12 months, utilities in danger of being shut off: no In past 12 months, lack of transportation kept you from medical appts, meetings, work, or getting things needed for daily living: no In the past 12 mos, have been you worried that your food would run out before you had money to buy more?: never true In the past 12 mos, the food you bought just didn't last and you didn't have money to buy more?: never true Smoking Status: Never smoker How often do you have a drink containing alcohol: monthly or less AUDIT-C Alcohol total score: 1 Non-prescribed substance use: denies use How often does anyone, including family, friends and others, physically hurt you: never How often does anyone, including family, friends and others, insult or talk down to you: never How often does anyone, including family, friends and others, threaten you with harm: never How often does anyone, including family, friends and others, scream or curse at you: never Exam Narrative: Exam Narrative: EXAM GENERAL: Patient appears To be extremely anxious. EYES: No scleral icterus. ENT: Tympanic membranes and oropharynx normal. THYROID: no thyroid nodules or thyromegaly. LYMPH: No supraclavicular or cervical lymphadenopathy. SKIN: Visible skin seen during exam normal or with benign process only. EXT: No dependent lower extremity pedal edema. HEART: Regular rate and rhythm with no murmurs, rubs, or gallops. LUNGS: Clear to auscultation bilaterally with no crackles or wheezes. ABD: Soft, non tender, non distended. PSYCH: Good eye contact, speech is not pressured. Const: Vital Signs, click to edit/add: Vital Signs - 24 hr 05/23/25 14:21 Temperature 97.8 F Pulse Rate [Pulse Oximeter] 86 Respiratory Rate 16 Blood Pressure [Ri ght Upper Arm] 145/85 H Pulse Oximetry 100 Oxygen Delivery Me thod Room Air Course Course ED Course: Patient seen and examined. EKG normal upon my review. I do think this is anxiety and I did offer reassurance. Differential diagnosis includes but not limited to acute coronary syndrome unstable angina pericarditis DVT pneumonia and pneumonitis pneumothorax. I do not believe further intervention or evaluation indicated and I did offer reassurance which she was quite receptive of. She will follow-up with her doctor next week. Vital Signs Vital signs: Initial Vital Signs Temperature 97.8 F 05/23/25 14:21 Temperature Source Temporal Artery Scan 05/23/25 14:21 Pulse Rate 86 05/23/25 14:21 Respiratory Rate 16 09/26/25 14:21 Blood Pressure 145/85 H 05/23/25 14:21 Blood Pressure Mean 105 05/23/25 14:21 Blood Pressure Position Sitting 05/23/25 14:21 Pulse Oximetry 100 05/23/25 14:21 Oxygen Delivery Method Room Air 05/23/25 14:21 Vital Signs Temperature 97.8 F 05/23/25 14:21 Pulse Rate 86 05/23/25 14:21 Respiratory Rate 16 05/23/25 14:21 Blood Pressure 145/85 H 05/23/25 14:21 Pulse Oximetry 100 05/23/25 14:21 Oxygen Delivery Method Room Air 05/23/25 14:21 Temperature 97.8 F 05/23/25 14:21 Pulse Rate 86 05/23/25 14:21 Respiratory Rate 16 05/23/25 14:21 Blood Pressure 145/85 H 05/23/25 14:21 Pulse Oximetry 100 05/23/25 14:21 Oxygen Delivery Method Room Air 05/23/25 14:21 Discharge Plan Discharge Clinical Impression: Hypertension Patient Disposition: Home, Self-Care Condition: Stable Instructions: Hypertension (ED) Additional Instructions: continue current medications. Try to rest. Follow-up with your doctor next week. Activity Level: No Restrictions Discharge Diet: Regular Prescriptions: No Action albuterol sulfate [Ventolin HFA] 90 mcg/actuation HFA aerosol inhaler 2 puff inhalation Q4-6H PRN ipratropium-albuterol 0.5 mg-3 mg(2.5 mg base)/3 mL solution for nebulization 3 ml inhalation Q4-6H PRN (Reason: wheezing) Qty: 90 1RF escitalopram oxalate 10 mg tablet 10 mg PO QDAY Qty: 90 1RF buspirone 10 mg tablet 10 mg PO BID Qty: 60 2RF dextroamphetamine-amphetamine [Adderall XR] 25 mg capsule,extended release 24hr 25 mg PO QAM Qty: 30 0RF dextroamphetamine-amphetamine [Adderall XR] 25 mg capsule,extended release 24hr 25 mg PO QAM Qty: 30 0RF dextroamphetamine-amphetamine [Adderall XR] 25 mg capsule,extended release 24hr 25 mg PO QAM Qty: 30 0RF dextroamphetamine-amphetamine [Adderall] 10 mg tablet 10 mg PO QDAY Qty: 30 0RF dextroamphetamine-amphetamine [Adderall] 10 mg tablet 10 mg PO QDAY Qty: 30 0RF dextroamphetamine-amphetamine [Adderall] 10 mg tablet 10 mg PO QDAY Qty: 30 0RF Follow Up/Referrals: Clay Tucker MD [Primary Care Provider, Family Practice] [facility]
== END 2025-05-23 15:40 | disposition home or self-care (01) ==
PROVIDERS: Emergency Provider Internal Medicine; PCP Family Medicine
DX: I10 Essential (primary) hypertension (principal)
CPT/HCPCS: 93005; 99283; 99284

== ENCOUNTER 2025-07-03 06:29 | Outpatient (CLI) | payer BC, SELFPAY ==
--- NOTE | 2025-07-03 07:47 | P.ANES_ITS ---
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
--- NOTE | 2025-07-03 07:47 | W.ANESCHARGE ---
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
== END 2025-07-03 06:30 | disposition home or self-care (01) ==
LOC: OP CLINIC 06:29
PROVIDERS: PCP Family Medicine; Visit Provider Surgery
DX: Z12.11 Encounter for screening for malignant neoplasm of colon (principal); D12.2 Benign neoplasm of ascending colon; Z86.0100 Personal history of colon polyps, unspecified
CPT/HCPCS: 00811; 00812; 45385; 88305; J2704